=== PATIENT | male | born 1990 | race Caucasian/White ===

== ENCOUNTER 2023-04-15 09:52 | Outpatient (OUT) | payer OTHER, SELFPAY ==
[2023-04-15 10:22] LABS: Basophils Percent Auto 0.6 % (0.2-2.0); Eosinophils Absolute Auto 0.1 10^3/uL (0.0-0.7); Eosinophils Percent Auto 1.1 % (0.9-7.0); Hematocrit 45.3 % (42.0-54.0); Hemoglobin 15.7 g/dL (14.0-18.0); Immature Granulocytes Abs Auto 0.02 10^3/uL (0.00-0.03); Immature Granulocytes Pct Auto 0.3 % (0.0-0.5); Lymphocytes Absolute Auto 1.8 10^3/uL (1.2-3.8); Lymphocytes Percent Auto 24.9 % (20.5-60.0); Mean Corpuscular HGB Conc 34.7 g/dL (29.9-35.2); Mean Corpuscular Hemoglobin 30.3 pg (25.9-34.0); Mean Corpuscular Volume 87.5 fL (80.0-94.0); Mean Platelet Volume 9.6 fL (9.5-13.5); Monocytes Absolute Auto 0.7 10^3/uL (0.3-0.8); Monocytes Percent Auto 9.3 % (1.7-12.0); Neutrophils Absolute Auto 4.6 10^3/uL (1.4-6.5); Neutrophils Percent Auto 63.8 % (43.0-75.0); Platelet Count 234 10^3/uL (150-450); Red Blood Count 5.18 10^6/uL (4.70-6.10); Red Cell Distribution Width 12.3 % (11.0-15.0); White Blood Count 7.2 10^3/uL (4.0-11.0)
[2023-04-15 12:07] LABS: Alanine Aminotransferase 45 U/L (16-63); Albumin Level 3.9 g/dL (3.4-5.0); Alkaline Phosphatase 91 U/L (46-116); Anion Gap 14.4; Aspartate Amino Transferase 16 U/L (15-37); Bilirubin Direct 0.1 mg/dL (0.0-0.2); Bilirubin Total 0.2 mg/dL (0.2-1.0); Calcium 9.4 mg/dL (8.5-10.1); Carbon Dioxide 25.1 mmol/L (21.0-32.0); Chloride 103 mmol/L (98-107); Chol HDL Ratio 5.4; Cholesterol 239 mg/dL (<=200); Estimated GFR (African America >60 (>=60); Estimated GFR (Non-African Ame >60 (>=60); Globulin 3.8 g/dL; Glucose 121 mg/dL (74-106); HDL Cholesterol 44 mg/dL (40-60); Potassium 4.5 mmol/L (3.5-5.1); Sodium 138 mmol/L (136-145); Total Protein 7.7 g/dL (6.4-8.2); Triglycerides 148 mg/dL (<=150); VLDL CHOLESTEROL 29.6 mg/dL
[2023-12-06 09:50] LABS: QuantiFERON-TB Gold Plus NEGATIVE
== END 2023-04-15 09:53 | disposition home or self-care (01) ==
LOC: LAB 09:58
PROVIDERS: PCP Internal Medicine; Visit Provider Dermatology
DX: Z79.899 Other long term (current) drug therapy (principal)
CPT/HCPCS: 36415; 80048; 80061; 80076; 85025; 86480

== ENCOUNTER 2024-07-08 12:50 | Outpatient (OUT) | payer OTHER, SELFPAY ==
--- NOTE | 2024-07-08 | ECG_ITS ---
[facility] Test Date: 2024-07-08 Pat Name: CHA PENN Department: Room: - Gender: Male [employer]: : 1990 Requested By: MARYT BANDA Order Number: [id number] Reading MD: MARTY BANDA Measurements Intervals [place] Rate: 129 P: 144 [place]: 135 QRS: 64 QRSD: 100 T: 30 QT: 310 QTc: 456 Interpretive Statements SINUS TACHYCARDIA NONSPECIFIC ST & T-WAVE ABNORMALITY ABNORMAL RHYTHM ECG No previous ECG available for comparison Electronically Signed On 07-08-2024 13:35:03 EDT by MARTY BANDA
[2024-07-08 13:54] LABS: Thyroid Stimulating Hormone 1.579 uIU/mL (0.358-3.740)
== END 2024-07-08 12:51 | disposition home or self-care (01) ==
LOC: CARD 12:53
PROVIDERS: PCP Internal Medicine; Visit Provider Internal Medicine
DX: R00.0 Tachycardia, unspecified (principal)
CPT/HCPCS: 36415; 84443; 93005

== ENCOUNTER 2024-07-14 06:58 | Outpatient (OUT) | payer OTHER, SELFPAY ==
--- NOTE | 2024-07-14 07:00 | CA_ITS ---
Patient Name: CHA PENN MR#: [id number] : 1990 Exam Date: 07/14/2024 Ordering Doctor: DR Connor Green D.O. ECHOCARDIOGRAM REPORT PROCEDURE: CA ECHO DOPPLER COMPLETE INDICATIONS: Tachycardia R00.0, Heart murmur R01.1 COMPARISON: None. DESCRIPTION: COMPLETE ECHOCARDIOGRAM Real-time transthoracic echocardiography with 2D, M-mode, spectral and color flow Doppler performed. QUALITY: Technical quality was good. LEFT VENTRICLE: Normal chamber size. Mild proximal septal hypertrophy (sigmoid septum). LV EF: Normal left ventricular ejection fraction 55%,No wall motion abnormalities DIASTOLIC: Normal diastolic function. ATRIAL SEPTUM: Visually appears intact. LEFT ATRIUM: Normal chamber size. RIGHT ATRIUM: Normal chamber size. RIGHT VENTRICLE: Normal chamber size. Normal right ventricular systolic function. TRICUSPID VALVE: Normal mobility and thickness. No stenosis with mild regurgitation. No evidence of pulmonary hypertension.RVSP 31 mmHg MITRAL VALVE: Normal mobility and thickness. No evidence of mitral valve stenosis. There is no mitral annular calcification. Trivial mitral regurgitation. AORTIC VALVE: Normal trileaflet appearance. No visible sclerosis. Normal leaflet mobility. No evidence of aortic valve stenosis. No aortic regurgitation. AORTIC ROOT: Normal diameter and appearance. Ascending aorta is normal in size. PULMONIC VALVE: Normal thickness and mobility. No stenosis. No regurgitation. PERICARDIUM: No evidence of pericardial effusion. IVC: Collapes with inspirations. IVC is normal in size. PLEURA: CONCLUSION: Normal left ventricle chamber size. Mild proximal septal hypertrophy (sigmoid septum). Normal left ventricular ejection fraction 55%, No wall motion abnormalities Normal diastolic function Normal right ventricle size and function No pulmonary hypertension No significant valvular abnormalities Adult Echocardiography Procedure Report Left Ventricle LVEDD (3.7 - 5.6 cm): 4.74 cm LVESD (2.2 - 4.0 cm): 3.62 cm LVIVS thickness (0.6 - 1.2 cm): 1.28 cm LVPW thickness (0.5 - 1.0 cm): 1.05 cm e': 0.15 m/s E - e': 5.23 LVOT Max Gradient: 1.74 mm[Hg] LVOT Area (cm2): 0.66 m/s Peak Velocity (LVOT): 0.66 m/s Mean Velocity (LVOT): 0.46 m/s LVOT Diameter 2.32 cm Left Ventricular Ejection Fraction: Left Atrium LA Volume Index (2D A2C): 28.70 ml/m2 Left Atrium Systolic Dimension: 4.19 cm Mitral Valve MV E to A Ratio: 1.79 MV Max Gradient: MV Mean Gradient: Mitral Valve A-Wave Peak Velocity: 0.44 m/s Mitral Valve E-Wave Peak Velocity: 0.79 m/s Cardiovascular Orifice Area: Right Ventricle RV Internal Diastolic Dimension: Aorta AO Root Diam: 3.38 cm Ascending Ao Diam: 2.78 cm Aortic Valve AoV Area (Peak [place]): 2.90 cm2, 2.90 cm2 AoV Area (VTI): 2.60 cm2, 2.60 cm2 Deceleration Taney: Pressure Half-Time: Peak Velocity(Antegrade Flow): 0.97 m/s Peak Gradient(Antegrade Flow): 3.74 mm[Hg] Mean Velocity(Antegrade Flow): 0.70 m/s Mean Gradient(Antegrade Flow): 2.22 mm[Hg] Velocity Time Integral: 22.75 cm Tricuspid Valve Peak Velocity (Regurgitant Flow): 2.32 m/s, 2.67 m/s Peak Velocity: Pulmonic Valve Mean Gradient: 2.13 mm[Hg] Mean Velocity: 0.68 m/s Peak Velocity: 1.03 m/s, 1.05 m/s Peak Gradient: 4.40 mm[Hg], 4.26 mm[Hg] Right Atrium Right Atrium Systolic Pressure: 68.70 ml, 68.70 ml Dictated by: Lane Gomez MD on 07/15/2024 at 18:36 Approved by: Lane Gomez MD on 07/15/2024 at 18:45
== END 2024-07-14 06:59 | disposition home or self-care (01) ==
LOC: CARD 06:58
PROVIDERS: PCP Internal Medicine; Visit Provider Internal Medicine
DX: R00.0 Tachycardia, unspecified (principal); R01.1 Cardiac murmur, unspecified
CPT/HCPCS: 93242; 93306

== ENCOUNTER 2024-08-28 08:27 | Outpatient (OUT) | payer OTHER, SELFPAY ==
--- NOTE | 2024-08-28 | PCN_ITS ---
PROCEDURE DATE: 08/28/2024 T[facility]MI[facility] STRESS TEST INDICATION: Abnormal EKG. The procedure in detail including risks and benefits were discussed with the patient, and he was agreeable to proceed. Resting EKG showed normal sinus rhythm, heart rate 68 beats per minute, T-wave inversion in leads 3 and AVF. Resting blood pressure 118/88. The patient was exercised according to standard [facility] protocol, and he was able to finish 9 minutes of exercise, achieving max heart rate of 166 beats per minute, which represents 90% of age predicted maximum heart rate. Maximal blood pressure 168/104 mm/Hg. The patient did not experience any chest, neck, jaw or arm discomfort throughout the test. He became short of breath at peak exercise. The patient was monitored for about 8 minutes into recovery phase with the heart rate back to baseline. His blood pressure dropped initially immediately after he stopped exercising to 88/60, without any associated symptoms. Then, it went back to baseline and it was 124/84 at the end of the test. EKG during exercise, at peak exercise, and during recovery phase did not show any significant T or ST changes in comparison to baseline. Rare PVCs were noted. CONCLUSIONS: 1. Maximal stress test achieving 90% of age predicted maximum heart rate. 2. Appropriate hear t rate and blood pressure response to exercise. 3. This stress test is negative for exercise induced ischemic symptoms, EKG changes or arrhythmias. Lane Gomez M.D., [facility] SARA/alee PERRIN
--- NOTE | 2024-08-28 10:26 | PC.NURSE ---
Nursing Note Cardiac Stress Test Reviewed: Medication, allergies and patient history reviewed. Stress Test: [ x] Patient tolerated stress test well. [ ] Patient unable to tolerate walking on treadmill. Switched to Lexiscan stress test. [ x] No chest pain noted per patient [ ] Chest pain that resolved prior to leaving stress lab. [ ] No dyspnea noted. [x ] Dyspnea that resolved prior to leaving stress lab. [ x] Patient left stress lab asymptomatic and hemodynamically stable. [ ] Patient taken to the Emergency Room due to non-resolving symptoms following stress test. [ x] Patient achieved target heart rate. [ ] Patient unable to achieve target heart rate. [ ] Aminophylline administered as reversal agent to Lexiscan (Regadenoson). [ ] Nitro administered. Nursing Comments:Pt had regular TM stress test. Tolerated well. No chest pain but had SOB that resolved within 2 minutes of rest. BP was taken immediately after pt got off TM and sat down and BP dropped into the 80's systolic. Pt was not symptomatic did not have and dizziness or lightheadedness. BP normalized within 3 minutes of rest and pt felt back to normal.
== END 2024-08-28 08:28 | disposition home or self-care (01) ==
LOC: CARD 08:27
PROVIDERS: PCP Internal Medicine; Visit Provider Internal Medicine Cardiovascular Disease
DX: R94.31 Abnormal electrocardiogram [ECG] [EKG] (principal)
CPT/HCPCS: 93017

== ENCOUNTER 2025-04-30 06:31 | Outpatient (OUT) | payer OTHER, SELFPAY ==
[2025-04-30 08:42] LABS: Alanine Aminotransferase 64 U/L (16-63); Aspartate Amino Transferase 31 U/L (15-37); Cholesterol 250 mg/dL (<=200); HDL Cholesterol 43 mg/dL (40-60); Triglycerides 171 mg/dL (<=150); VLDL CHOLESTEROL 34.2 mg/dL
== END 2025-04-30 06:32 | disposition home or self-care (01) ==
LOC: LAB 06:34
PROVIDERS: PCP Internal Medicine; Visit Provider Internal Medicine Cardiovascular Disease
DX: E78.00 Pure hypercholesterolemia, unspecified (principal)
CPT/HCPCS: 36415; 80061; 84450; 84460

== ENCOUNTER 2025-04-30 06:38 | Outpatient (OUT) | payer OTHER, SELFPAY ==
[2025-04-30 07:06] LABS: Hematocrit 46.1 % (42.0-54.0); Hemoglobin 16.1 g/dL (14.0-18.0); Immature Granulocytes Abs Auto 0.02 10^3/uL (0.00-0.03); Immature Granulocytes Pct Auto 0.3 % (0.0-0.5); Lymphocytes Absolute Auto 1.9 10^3/uL (1.2-3.8); Mean Corpuscular HGB Conc 34.9 g/dL (29.9-35.2); Mean Corpuscular Hemoglobin 30.3 pg (25.9-34.0); Mean Corpuscular Volume 86.7 fL (80.0-94.0); Platelet Count 224 10^3/uL (150-450); Red Blood Count 5.32 10^6/uL (4.70-6.10); White Blood Count 6.6 10^3/uL (4.0-11.0)
[2025-04-30 08:42] LABS: Alanine Aminotransferase 64 U/L (16-63); Albumin Globulin Ratio 1.0; Albumin Level 4.0 g/dL (3.4-5.0); Alkaline Phosphatase 66 U/L (46-116); Anion Gap 12.2; Aspartate Amino Transferase 30 U/L (15-37); Blood Urea Nitrogen 15.0 mg/dL (7.0-18.0); Calcium 9.3 mg/dL (8.5-10.1); Carbon Dioxide 25.9 mmol/L (21.0-32.0); Chloride 106 mmol/L (98-107); Estimated GFR (African America >60 (>=60 mL/min/1.73m^2); Estimated GFR (Non-African Ame >60 (>=60 mL/min/1.73m^2); Globulin 4.0 g/dL; Glucose 112 mg/dL (74-106); Potassium 4.1 mmol/L (3.5-5.1); Sodium 140 mmol/L (136-145); Total Protein 8.0 g/dL (6.4-8.2)
== END 2025-04-30 06:39 | disposition home or self-care (01) ==
LOC: LAB 06:39
PROVIDERS: PCP Internal Medicine; Visit Provider Dermatology
DX: E78.00 Pure hypercholesterolemia, unspecified (principal); Z79.899 Other long term (current) drug therapy
CPT/HCPCS: 36415; 80053; 80061; 84450; 84460; 85025; 86480